=== PATIENT | male | born 1960 | race Caucasian/White ===

== ENCOUNTER 2020-12-04 11:08 | Outpatient (CLI) | payer BC, SELFPAY ==
--- NOTE | ~2020-12-04 | XR_ITS ---
EXAMINATION: XR hand BI arthritis min 3V EXAM DATE: 12/04/2020 11:30 INDICATION: [id number] - Idiopathic chronic gout, unspecified site. TECHNIQUE: Right hand frontal, lateral and oblique projections obtained and reviewed. Left hand fron marilyn, lateral and oblique projections obtained and reviewed. Catchers projection of both hands. There is no prior study for comparison. FINDINGS: Right hand: Bulky soft tissue prominence with some regions of calcifications overlying multiple joint s including metacarpophalangeal, the proximal interphalangeal, the 2nd distal interphalangeal joint a nd the ulnar carpal joint. Erosions of the proximal carpal row, gouty tophus formation. Scattered jux ta-articular erosions mostly affecting these previously mentioned joints, and the proximal carpal row , gout. There are no acute fractures identified. No radiopaque foreign bodies identified. Left hand: Similar appearance to the left hand with addition of distal carpal row involvement. There are no acute fractures identified. No radiopaque foreign bodies identified. IMPRESSION: Numerous juxta-articular erosions and soft tissue pelvis formation, gout. Reviewed, dictated and finalized at location D.
== END 2020-12-04 11:09 | disposition home or self-care (01) ==
LOC: ANHIMG 11:12
PROVIDERS: PCP Family Medicine; Visit Provider Family Medicine
DX: M06.30 Rheumatoid nodule, unspecified site (principal); M1A.00X1 Idiopathic chronic gout, unspecified site, with tophus (tophi)
CPT/HCPCS: 73130